=== PATIENT | female | born 1935 | race Caucasian/White ===

== ENCOUNTER 2019-08-01 08:05 | Inpatient (IN) ==
--- NOTE | 2019-07-20 15:55 | PAT Medication Instructions ---
Medication Instructions Date of Service July 20, 2019 Home Medications doxepin 25 mg PO HS levothyroxine 75 mcg PO QAM losartan 50 mg PO QAM omeprazole 40 mg PO QAM oxybutynin chloride 5 mg PO HS paroxetine HCl 40 mg PO QAM quetiapine [Seroquel] 100 mg PO HS simvastatin 20 mg PO HS melatonin 5 mg PO HS DO NOT take the morning of surgery losartan 50 mg PO QAM Take morning of surgery With a small sip of water, OTHERWISE NOTHING TO EAT OR DRINK AFTER MIDNIGHT: levothyroxine 75 mcg PO QAM omeprazole 40 mg PO QAM paroxetine HCl 40 mg PO QAM Take evening before surgery doxepin 25 mg PO HS oxybutynin chloride 5 mg PO HS quetiapine [Seroquel] 100 mg PO HS simvastatin 20 mg PO HS melatonin 5 mg PO HS Other Notes If you have any questions please call us at [phone] or [phone] or [phone] or [phone]
--- NOTE | 2019-07-21 08:35 | Anesthesiology Consultation ---
Date of Service July 21, 2019 Assessment & Plan (1) Encounter for pre-operative examination: - Awaiting review preop testing (labs, EKG, CXR). Chart Review Chart Review: Patient seen in Pre Admission Testing Teaching & Discussion Pre-Anesthesia Teaching/Discussion Notes: Instructed NPO after midnight before surgery,except medications with 15 cc of water. Medication instructions provided according to the PAT guidelines. History Surgery Operation Date: 08/01/19 10:25 Proposed Procedures p L1 Kyphoplasty - Ed Mcgovern DO Height/Weight Height: 5 ft 3 in Weight: 76.5 kg Allergies Allergy/AdvReac Type Severity Reaction Status Date / Time chlorpromazine AdvReac Confusion Verified 07/19/19 08:32 [From Thorazine] morphine AdvReac Confusion Verified 07/19/19 08:32 Medications Home Medications Medication Instructions Recorded Confirmed Last Taken doxepin 25 mg PO HS 08/22/18 07/19/19 10/10/18 levothyroxine 75 mcg PO QAM 08/22/18 07/19/19 10/11/18 07:00 losartan 50 mg PO QAM 08/22/18 07/19/19 10/11/18 07:00 omeprazole 40 mg PO QAM 08/22/18 07/19/19 10/11/18 07:00 oxybutynin chloride 5 mg PO HS 08/22/18 07/19/19 10/10/18 paroxetine HCl 40 mg PO QAM 08/22/18 07/19/19 10/11/18 07:00 quetiapine [Seroquel] 100 mg PO HS 08/22/18 07/19/19 10/10/18 simvastatin 20 mg PO HS 08/22/18 07/19/19 10/10/18 melatonin 5 mg PO HS 07/19/19 07/19/19 Unknown Past Medical History Medical History Anxiety Fatty liver GERD (gastroesophageal reflux disease) controlled Hearing deficit no hearing aids Hyperlipidemia Hypertension Hypothyroidism Obesity Osteoarthritis Overactive bladder Exercise / Class Metabolic Activity III < 4 Walking/Shop/Light housework Past Family History Family History Brother Family hx of colon cancer Family history of esophageal cancer Mother Family hx of colon cancer Daughter Family history of diabetes mellitus Past Surgical History Surgical History History of bilateral tubal ligation History of breast biopsy History of cataract surgery b/l History of cholecystectomy History of colonoscopy polypectomy History of salpingo-oophorectomy History of shoulder surgery left History of total knee replacement left Past Anesthesia History No Hx of Anesthesia Complications and No Family Hx of Anesthesia Complications History of PONV No Hx of PONV and No Hx of Motion Sickness Social History Smoking Status: Never smoker Do You Dip or Chew Tobacco: No Hx Alcohol Use: No Hx Substance Use: No substance use type: does not use Review of Systems Reflux controlled. Patient denies chest pain, shortness of breath, cough, wheezi ng, palpitations. Physical Exam Vital Signs VITALS BP 132/75 P 94 TEMP 98.2 SP02 93%RA RESP 18 PHYSICAL Full neck and c-spine range of motion. Full TMJ range of motion. TMD 3 finger breaths Mallampati Score 3 Dentition: full plate upper/lower; edentulous Lungs: clear throughout to auscultation Cardiac: regular rate and rhythm, no murmurs noted Spine: normal Carotid arteries: negative bruit Extremities: no edema
[2019-07-21 09:42] LABS: Basophils # (auto) 0.03 K/uL (0-0.2); Basophils % (auto) 0.4 %; Eosinophils % (auto) 1.3 %; Hematocrit (blood only) 36.5 % (37-47); Hemoglobin 12.3 g/dL (12.0-16.0); Immature Granulocytes # (auto) 0.01 K/uL (0.00-0.02); Immature Granulocytes % (auto) 0.1 %; Lymphocytes # (auto) 1.87 K/uL (1.2-3.4); Lymphocytes % (auto) 23.4 %; Mean Corpuscular Hemoglobin 30.3 pg (25-34); Mean Corpuscular Hgb Conc 33.7 g/dL (32-36); Mean Corpuscular Volume 89.9 fL (80-100); Mean Platelet Volume 9.1 fL (7.4-10.4); Monocytes # (auto) 0.76 K/uL (0.11-0.59); Monocytes % (auto) 9.5 %; Neutrophils # (auto) 5.23 K/uL (1.4-6.5); Neutrophils % (auto) 65.3 %; Platelet Count 223 K/uL (130-400); RDW Coefficient of Variation 15.4 % (11.5-14.5); RDW Standard Deviation 51.2 fL (36.4-46.3); Red Blood Count 4.06 M/uL (4.2-5.4)
[2019-07-21 09:52] LABS: BUN Creatinine Ratio 19.8 (10-20); Calcium 8.8 mg/dl (8.5-10.1); Creatinine Clr Calc Pharmacy 54.2 ml/min; Est GFR (African American) 82.8; Est GFR (Non-African American) 71.4
[2019-07-21 09:54] LABS: Partial Thromboplastin Time 27.1 Seconds (21.0-31.0); Prothrombin Time 10.2 Seconds (9.0-12.0)
[~2019-08-01 08:05] MED LIST: ACETAMINOPHEN 500 MG TAB PO SCH; CEFAZOLIN 2000MG 2,000 MG/15 ML SYR IV SCH; CeleBREX 200 MG CAP PO SCH; GABAPENTIN 300 MG CAP PO SCH; LR 15ML/HR IV SCH
[2019-08-01] MEDS ORDERED: fentaNYL citrate 100 MCG/2 ML VIAL ONE ×2 (09:11→10:35)
--- NOTE | 2019-08-01 09:28 | History & Physical Bridge Note ---
Date of Service August 01, 2019 History & Physical Bridge Note I have examined the patient, reviewed the History & Physical and in the interval since the performance of the History & Physical I have noted the following changes of clinical significance: no changes noted
--- NOTE | 2019-08-01 09:29 | History & Physical Report ---
Date of Service August 01, 2019 Assessment & Plan (1) Lumbar compression fracture: L1 kyphoplasty Present on Admission?: Yes History of Present Illness Chief Complaint: Back pain Primary Care Provider: Bernice Myers DO This is an 83-year-old female who presents with worsening back pain status post L1 compression fracture. She is subsequently here for surgical intervention. Allergies Allergy/AdvReac Type Severity Reaction Status Date / Time chlorpromazine AdvReac Intermediate Confusion Verified 08/01/19 08:36 [From Thorazine] morphine AdvReac Intermediate Confusion Verified 08/01/19 08:36 Home Medications Home Medications Medication Instructions Recorded Confirmed Type doxepin 25 mg PO HS 08/22/18 08/01/19 History levothyroxine 75 mcg PO QAM 08/22/18 08/01/19 History omeprazole 40 mg PO QAM 08/22/18 08/01/19 History oxybutynin chloride 5 mg PO HS 08/22/18 08/01/19 History paroxetine HCl 40 mg PO QAM 08/22/18 08/01/19 History quetiapine [Seroquel] 100 mg PO HS 08/22/18 08/01/19 History simvastatin 20 mg PO HS 08/22/18 08/01/19 History melatonin 5 mg PO HS 07/19/19 08/01/19 History apixaban [Eliquis] 5 mg PO BID #60 tab 07/21/19 08/01/19 Rx metoprolol tartrate 12.5 mg PO BID #14 tab 07/21/19 08/01/19 Rx Past Med/Surg History Family History Brother Family hx of colon cancer Family history of esophageal cancer Mother Family hx of colon cancer Daughter Family history of diabetes mellitus Social History Preferred Language: Mohawk Communication Ability: Effective Financial Systems Manager Required: No Beliefs That Will Affect Care: None Current Living Situation: Family Current Living Situation Comment: currently lives w/ son Other Information That Helps Us Care for You: No Feels Safe at Home: Yes Safety Concerns: Feels Safe At This Time Smoking Status: Never smoker Do You Dip or Chew Tobacco: No ; Second Hand Exposure: No ; Tobacco Cessation Education Requested by Patient: No Hx Alcohol Use: No Hx Substance Use: No Physical Exam Physical Exam: Patient is alert and oriented neurologically intact. Results & Data Vital Signs (Past 12 Hours) Vital Signs Temp Pulse Resp BP Pulse Ox 08/01/19 08:45 36.5 C 99 H 20 159/81 H 96
[2019-08-01] MEDS ORDERED: GLYCOPYRROLATE 0.2 MG/ML VIAL ONE (09:41)
[2019-08-01] MEDS ORDERED: ROCURONIUM BROMIDE 10 MG/ML 5 ML VIAL ONE (09:41)
[2019-08-01] MEDS ORDERED: DEXAMETHASONE SOD INJ 4 MG/ML VIAL ONE (09:41)
[2019-08-01] MEDS ORDERED: LIDOCAINE HCL 2% 2 ML VIAL/AMP(20MG/ML) INFIL ONE (09:41)
[2019-08-01] MEDS ORDERED: PROPOFOL IV EMULSION 10 MG/ML 20 ML VIAL IV ONE (09:41)
[2019-08-01] MEDS ORDERED: ONDANSETRON INJ 2 MG/ML 2 ML VIAL ONE (09:41)
[2019-08-01] MEDS ORDERED: NEOSTIGMINE METHYLSULFATE 1 MG/ML 10ML VIAL ONE (09:41)
[2019-08-01] MEDS ORDERED: HYDROmorphone INJ 2 MG/ML SYR/VIAL ONE (09:41)
[2019-08-01] MEDS ORDERED: BUPIVACAINE/EPINEPHRINE 0.5% MPF 1:200,000 30 ML VIAL ONE (09:43)
[2019-08-01] MEDS ORDERED: CONRAY 60% 50 ML VIAL ONE (09:43)
[2019-08-01] MEDS ORDERED: fentaNYL citrate 100 MCG/2 ML VIAL IV PRN (09:51)
[2019-08-01] MEDS ORDERED: LABETALOL HCL IV 5 MG/ML 20ML IV PRN (09:51)
[2019-08-01] MEDS ORDERED: ONDANSETRON INJ 2 MG/ML 2 ML VIAL IV PRN ×2 (09:51→17:33)
[2019-08-01] MEDS ORDERED: ATROPINE SULFATE 0.1 MG/ML 10ML SYR IV PRN (09:51)
[2019-08-01] MEDS ORDERED: PHENYLEPHRINE 100MCG/ML 5ML SYR ONE (10:45)
[2019-08-01] MEDS ORDERED: LARYING-O-JET KIT (LTA) ONE (10:45)
[2019-08-01] MEDS ORDERED: KETOROLAC 30 MG/ML VIAL ONE (10:45)
[2019-08-01] MEDS ORDERED: HYDROmorphone INJ 0.5 MG/0.5 ML SYR IV PRN ×2 (10:48)
[2019-08-01] MEDS ORDERED: ACETAMINOPHEN 500 MG TAB PO PRN (10:48)
[2019-08-01] MEDS ORDERED: HYDROCODONE/ACETAMOPHEN 5/325MG TAB PO PRN ×2 (10:48)
--- NOTE | 2019-08-01 10:48 | Operative Report ---
Post Operative Report Pre & Post Diagnosis Operation Date: 08/01/19 10:05 Pre-Op Diagnosis: Wedge Compression Fracture of First Lumbar Vertebrae Post-Op Diagnosis: Wedge Compression Fracture of First Lumbar Vertebrae I identified the patient and participated in the time-out.: Yes Procedure Operation Date: 08/01/19 10:05 Actual Procedures p L1 Kyphoplasty(Not Applicable) - Ed Mcgovern DO Surgeon Ed Mcgovren, Rhit None Estimated Blood Loss 10 Findings Consistent with Post-Op Diagnosis Specimens Biopsy of L1 vertebral body Indications This is a 83-year-old female that presents with worsening pain status post L1 compression fracture. She is unable to undergo her activities of daily living and subsequently elected to undergo the above-mentioned procedure. Description of Procedure Patient was met with identified and informed consent obtained. Patient was then taken to the operative suite underwent intubation placed in the prone position the [place] table chest padded bolsters. All bony prominences well-padded eyes inspected to ensure no external pressure placed upon the peer at this point the thoracolumbar spine was prepped and draped in the normal sterile fashion. With the assistance of fluoroscopy in AP and lateral planes identified the L1 vertebral body and 2 small incisions were placed just lateral to the pedicle. Kyphon working cannulas were then placed by way of a transpedicular approach into the vertebral body of L1. 2 core biopsies were then obtained. I then inserted 220 mm Kyphon balloons within the vertebral body. They were sequentially inflated under direct visualization of fluoroscopy. They were subsequently removed in approximately 6 cc of Kyphon cement injected under fluoroscopic visualization. Demonstrated an excellent interdigitation and fill of the vertebral body. The working apparatus was then removed the small incisions closed with subcutaneous Monocryl sterile dressing placed. Patient awakened taken to PACU stable condition. I attest to the content of the Intraoperative Record and any orders documented therein. Any exceptions are noted below.
--- NOTE | 2019-08-01 11:09 | Fluoroscopy Report ---
FL lumbar spine 2-3V HISTORY: 83 years-old Female L1 KYPHOPLASTY L1 compression deformity with kyphoplasty COMPARISON: None available TECHNIQUE: 3 spot fluoroscopic images of the lumbar spine were obtained utilizing 149.2 seconds fluor oscopy time FINDINGS: Demineralized appearance the bones. Burst fracture with kyphoplasty changes at what appears to be the L1 vertebral body. Kyphoplasty material appears to be located within the vertebral body without gerardo cent extravasation. Mild associated retropulsion of the fracture fragments. Mild multilevel disc spac e narrowing and spondylitic spurring. IMPRESSION: Fluoroscopic assistance as above. Please see procedural report for further details. The above report was generated using voice recognition software. It may contain grammatical, syntax o r spelling errors. Electronically signed by: Norbert Ward M.D. 08/01/2019 11:07 AM
[2019-08-01] MEDS ORDERED: LABETALOL HCL IV 5 MG/ML 20ML IV ONE (12:10)
[2019-08-01] MEDS ORDERED: ESMOLOL HCL INJ 10 MG/ML 10ML VIAL IV ONE (12:10)
--- NOTE | 2019-08-01 12:23 | Anesthesiology Progress Note ---
Date of Service August 01, 2019 Anesthesia Post Procedure Vital Signs Vital Signs: Temp Pulse Pulse Resp BP Pulse Ox 08/01/19 12:05 36.5 C 87 17 105/86 95 08/01/19 11:55 36.5 C 80 19 117/85 95 08/01/19 11:45 36.5 C 82 18 134/96 94 08/01/19 11:36 36.5 C 81 21 133/84 96 08/01/19 11:25 36.3 C L 87 10 L 135/88 98 08/01/19 11:15 36.3 C L 79 15 140/109 H 96 08/01/19 11:07 36.3 C L 99 H 14 149/111 H 99 08/01/19 08:45 36.5 C 99 H 20 159/81 H 96 Pain Intensity Lower Back: Pain Intensity: 5 Neck: Pain Intensity: 10 Transfer of Care Handoff Completed per policy Notes Mental Status: alert / awake / arousable Patient Amnestic to Procedure: Yes Nausea / Vomiting: adequately controlled Pain: adequately controlled Airway Patency, RR, SpO2: stable & adequate BP & HR: stable & adequate Hydration State: stable & adequate Anesthetic Complications: no major complications apparent
--- NOTE | 2019-08-01 16:45 | Anesthesiology Progress Note ---
Date of Service August 01, 2019 Anesthesia Post Procedure Vital Signs Vital Signs: Temp Pulse Pulse Resp BP Pulse Ox 08/01/19 16:00 72 13 144/83 H 99 08/01/19 15:50 68 21 137/69 99 08/01/19 15:40 72 12 131/85 93 08/01/19 15:30 74 20 132/76 93 08/01/19 15:20 36.0 C L 74 16 130/98 97 08/01/19 15:10 75 13 125/76 95 08/01/19 15:00 85 13 110/88 95 08/01/19 14:30 36.4 C L 83 23 154/87 H 94 08/01/19 14:15 36.4 C L 89 19 141/88 H 93 08/01/19 14:00 36.4 C L 79 12 125/75 93 08/01/19 13:45 36.4 C L 97 H 11 L 128/104 H 95 08/01/19 13:30 77 12 123/93 94 08/01/19 13:20 79 14 130/80 93 08/01/19 13:10 84 14 135/80 96 08/01/19 13:00 82 13 121/84 96 08/01/19 12:50 36.5 C 79 14 132/84 96 08/01/19 12:35 36.5 C 84 24 130/80 95 08/01/19 12:20 36.5 C 88 17 127/89 95 08/01/19 12:05 36.5 C 87 17 105/86 95 08/01/19 11:55 36.5 C 80 19 117/85 95 08/01/19 11:45 36.5 C 82 18 134/96 94 08/01/19 11:36 36.5 C 81 21 133/84 96 08/01/19 11:25 36.3 C L 87 10 L 135/88 98 08/01/19 11:15 36.3 C L 79 15 140/109 H 96 08/01/19 11:07 36.3 C L 99 H 14 149/111 H 99 08/01/19 08:45 36.5 C 99 H 20 159/81 H 96 Pain Intensity Lower Back: Pain Intensity: 0 Neck: Pain Intensity: 0 Transfer of Care Handoff Completed per policy Notes Mental Status: alert / awake / arousable Patient Amnestic to Procedure: Yes Nausea / Vomiting: adequately controlled Pain: adequately controlled Airway Patency, RR, SpO2: see Notes below BP & HR: stable & adequate Hydration State: stable & adequate Anesthetic Complications: no major complications apparent and Pt Satisfied with anesthetic care Notes: The patient underwent surgery earlier today. Dr. Reed signed the patient over to me at 1500. She has been sleepy in the PACU for the past several hours likely due to a combination of residual narcotic, advanced age, and undiagnosed sleep apnea. She would occasionally arouse but then would obstruct her breathing and her SpO2 would go down to the low 90s. Bipap was placed on the patient and she has responded very well. She is awake and talking . Since the patient is requiring Bipap to remain awake she will be observed overnight in telemetry. Dr. Wall will follow the patient on the floor. Dr. Mcgovern is aware that the patient will be staying in the hospital.
--- NOTE | 2019-08-01 17:01 | XRay Report ---
XR chest 1V portable HISTORY: hypoxia /resp failure COMPARISON: None. FINDINGS: No pneumothorax. The heart is mildly enlarged. There is diffuse interstitial vascular thick ening. This favors mild interstitial pulmonary edema. Questionable trace pleural effusions. No focal lung consolidations to suggest pneumonia. IMPRESSION: Mild interstitial pulmonary edema and trace bilateral pleural effusions. Electronically signed by: Benitez Jimenez M.D. 08/01/2019 4:59 PM
--- NOTE | 2019-08-01 17:12 | Hospitalist Consultation ---
Date of Consultation August 01, 2019 Assessment & Plan (1) Unresponsiveness: Patient patient was difficult to arouse postoperatively Possible combination of narcotic pain medications, obstructive sleep apnea, leading to CO2 retention Symptom resolved after BiPAP Patient is awake and alert answers questions appropriately Continue on BiPAP, plan to wean off BiPAP to nasal cannula Monitoring telemetry Avoid narcotics, sedatives PAROXYSMAL A. FIB Recently diagnosed in the ER visit 07/21/2019 at [facility] for palpitation Patient been started with Lopressor 12.5 mg twice daily and anticoagulated on Eliquis 5 mg twice daily( [id number] score 4: Age, gender, hypertension) Seen by cardiology at [facility] Dr. Crocker on 07/27/2019 Commenced to continue beta-devan, had no bleeding issues with Eliquis Echocardiogram on 03/2018 showed normal LV ejection fraction Patient had a 24-hour Holter study on 03/2018: 30 runs of SVT likely PAT Patient found to be stable to proceed for elective lumbar kyphoplasty [facility] on 08/01/2019 Eliquis was kept on hold appropriately preop Patient continued with beta-devan Postoperatively tomorrow morning patient remains in normal sinus with rate controlled Monitor on telemetry Chest x-ray shows mild pulmonary vascular congestion with trace bilateral pleural effusion Ordered for echo in a.m. HYPERLIPIDEMIA Continue statin LUMBAR DECOMPRESSION FRACTURE Patient sustained a fall on May, L1 compression fracture which has been limiting her daily activities Underwent kyphoplasty by Dr. Mcgovern today postoperative day 0 Postop complication noted to be unresponsiveness hypoxia-management as outlined above HYPOTHYROIDISM Continue levothyroxine CODE STATUS: Full code DVT prophylaxis: SCD and teds Pharmacological anticoagulation avoided secondary to recent spinal surgery DISPOSITION Observe in telemetry overnight Possible discharge tomorrow by primary service if patient's respiratory status is back to normal History of Present Illness Reason for Consultation: Unresponsive post lumbar surgery Requesting Physician: Ed Mcgovern DO Attending Physician: Ed Mcgovern DO History of Present Illness This is a 83-year-old female with past medical history of paroxysmal A. fib, hypertension, hyperlipidemia, hypothyroidism Underwent kyphoplasty by Dr. Mcgovern for severe compression fracture of L1 Intraoperatively patient received 200 mcg of IV fentanyl, IV Dilaudid Postprocedure recovery patient was difficult to arouse, She was given Narcan with no improvement Briefly responsive after placing nasal trumpet, 2 L oxygen supplement via nasal cannula Later became sedated again with SPO2 dropping below 90s BiPAP was placed, Patient was seen in PACU, was on BiPAP, More arousable, After 10 minutes on BiPAP, open eyes, able to answer questions appropriately, denies of any chest pain, shortness of breath Denies of any history of COPD, sleep apnea or any lung issues Patient will be observed in telemetry overnight for possible CO2 retention secondary to narcotic sedation, Ordered for stat portable chest x-ray: Shows mild pulmonary vascular congestion, no infiltrate Stat ABG ordered: Results still pending Patient will be continued with BiPAP, plan to wean off BiPAP and transition to nasal cannula, ABG shows no evidence of CO2 retention Avoid on narcotics for pain meds, sedated Scheduled dose of IV Tylenol Plan of care discussed with primary attending Dr. Mcgovern Allergies Allergy/AdvReac Type Severity Reaction Status Date / Time chlorpromazine AdvReac Intermediate Confusion Verified 08/01/19 08:36 [From Thorazine] morphine AdvReac Intermediate Confusion Verified 08/01/19 08:36 Home Medications Home Medications Medication Instructions Recorded Confirmed Type doxepin 25 mg PO HS 08/22/18 08/01/19 History levothyroxine 75 mcg PO QAM 08/22/18 08/01/19 History omeprazole 40 mg PO QAM 08/22/18 08/01/19 History oxybutynin chloride 5 mg PO HS 08/22/18 08/01/19 History paroxetine HCl 40 mg PO QAM 08/22/18 08/01/19 History quetiapine [Seroquel] 100 mg PO HS 08/22/18 08/01/19 History simvastatin 20 mg PO HS 08/22/18 08/01/19 History melatonin 5 mg PO HS 07/19/19 08/01/19 History apixaban [Eliquis] 5 mg PO BID #60 tab 07/21/19 08/01/19 Rx metoprolol tartrate 12.5 mg PO BID #14 tab 07/21/19 08/01/19 Rx hydrocodone-acetaminophen See Rx Instructions .ROUTE 08/01/19 Rx .COMPLEX PRN #30 tab Patient History Family History Brother Family hx of colon cancer Family history of esophageal cancer Mother Family hx of colon cancer Daughter Family history of diabetes mellitus Social History Preferred Language: Telugu Communication Ability: Effective Simulation Tech Required: No Beliefs That Will Affect Care: None Current Living Situation: Family Current Living Situation Comment: lives with son Other Information That Helps Us Care for You: No Feels Safe at Home: Yes Safety Concerns: Feels Safe At This Time Smoking Status: Never smoker Do You Dip or Chew Tobacco: No ; Second Hand Exposure: No ; Tobacco Cessation Education Requested by Patient: No Hx Alcohol Use: No Hx Substance Use: No Physical Exam Constitutional: no acute distress Eyes: + anicteric sclerae ENMT: On BiPAP, patient is awake, able to answer questions Neck: trachea midline, no thyromegaly Respiratory: normal respiratory effort; no respiratory distress and no cough Auscultation: no crackles, no rales, no rhonchi and no wheezes Cardiovascular: RRR, no murmur, no edema Musculoskeletal: no cyanosis or clubbing, extremities motor strength 5/5 Skin: no rashes, warm and dry Neurologic: PERRL, EOMI, accommodation nl, no face palsy, no dysarthria Psychiatric: Orientation: alert, oriented to person and oriented to place Results & Data Vital Signs (Past 12 Hours) Vital Signs Temp Pulse Pulse Pulse Resp BP Pulse Ox 08/01/19 16:40 72 13 125/71 99 08/01/19 16:30 70 12 120/69 99 08/01/19 16:20 72 77 13 125/68 99 08/01/19 16:10 73 24 127/82 98 08/01/19 16:00 72 13 144/83 H 99 08/01/19 15:50 68 21 137/69 99 08/01/19 15:40 72 12 131/85 93 08/01/19 15:30 74 20 132/76 93 08/01/19 15:20 36.0 C L 74 16 130/98 97 08/01/19 15:10 75 13 125/76 95 08/01/19 15:00 85 13 110/88 95 08/01/19 14:30 36.4 C L 83 23 154/87 H 94 08/01/19 14:15 36.4 C L 89 19 141/88 H 93 08/01/19 14:00 36.4 C L 79 12 125/75 93 08/01/19 13:45 36.4 C L 97 H 11 L 128/104 H 95 08/01/19 13:30 77 12 123/93 94 08/01/19 13:20 79 14 130/80 93 08/01/19 13:10 84 14 135/80 96 08/01/19 13:00 82 13 121/84 96 08/01/19 12:50 36.5 C 79 14 132/84 96 08/01/19 12:35 36.5 C 84 24 130/80 95 08/01/19 12:20 36.5 C 88 17 127/89 95 08/01/19 12:05 36.5 C 87 17 105/86 95 08/01/19 11:55 36.5 C 80 19 117/85 95 08/01/19 11:45 36.5 C 82 18 134/96 94 08/01/19 11:36 36.5 C 81 21 133/84 96 08/01/19 11:25 36.3 C L 87 10 L 135/88 98 08/01/19 11:15 36.3 C L 79 15 140/109 H 96 08/01/19 11:07 36.3 C L 99 H 14 149/111 H 99 08/01/19 08:45 36.5 C 99 H 20 159/81 H 96
[2019-08-01] MEDS ORDERED: MAGNESIUM HYDROXIDE SUSP 30 ML UDC PO PRN (17:33)
[2019-08-01] MEDS ORDERED: POLYETHYLENE (MIRALAX) 17 GM PACK PO PRN (17:33)
[2019-08-01] MEDS ORDERED: ALUMINUM/MAGNESIUM SUSP 30 ML UDC PO PRN (17:33)
[2019-08-01 18:01] LABS: Hematocrit (blood only) 30.5 % (37-47); Hemoglobin 10.1 g/dL (12.0-16.0); Mean Corpuscular Hemoglobin 29.9 pg (25-34); Mean Corpuscular Hgb Conc 33.1 g/dL (32-36); Mean Corpuscular Volume 90.2 fL (80-100); Mean Platelet Volume 9.1 fL (7.4-10.4); Platelet Count 165 K/uL (130-400); RDW Coefficient of Variation 15.3 % (11.5-14.5); RDW Standard Deviation 50.9 fL (36.4-46.3); Red Blood Count 3.38 M/uL (4.2-5.4); White Blood Count 8.31 K/uL (4.8-10.8)
[2019-08-01 18:05] LABS: Base Excess ABG 1.6 mEq/L (-9-1.8); HCO3 ABG 28 mmol/L (19-24); Oxygen Saturation ABG 97.7 % (90-95); PCO2 ABG 52 mmHg (35-46); PO2 ABG 108 mm/Hg (80-95); pH ABG 7.35 (7.35-7.45)
[2019-08-01 18:06] LABS: Allen Test POS (Pos)
[2019-08-01] MEDS: ACETAMINOPHEN 1,000 MG/100 ML VIAL IV SCH (18:06)
[2019-08-01 18:14] LABS: BUN Creatinine Ratio 17.3 (10-20); Calcium 8.4 mg/dl (8.5-10.1); Creatinine Clr Calc Pharmacy 67.5 ml/min; Est GFR (African American) 95.6; Est GFR (Non-African American) 82.5; Potassium 3.9 mmol/L (3.5-5.1)
[2019-08-01] MEDS ORDERED: OXYBUTYNIN CHLORIDE 5 MG TAB PO SCH (21:00)
[2019-08-01] MEDS ORDERED: SIMVASTATIN 20 MG TAB PO SCH (21:00)
[2019-08-01] MEDS: METOPROLOL TARTRATE 25 MG TAB PO SCH (21:06)
[2019-08-02] MEDS: ACETAMINOPHEN 1,000 MG/100 ML VIAL IV SCH (01:50)
[2019-08-02 06:12] LABS: Hematocrit (blood only) 30.7 % (37-47); Hemoglobin 10.3 g/dL (12.0-16.0)
[2019-08-02] MEDS ORDERED: LEVOTHYROXINE SODIUM 75 MCG TABLET PO SCH (06:30)
[2019-08-02] MEDS: METOPROLOL TARTRATE 25 MG TAB PO SCH (07:32)
--- NOTE | 2019-08-02 08:09 | Hospitalist Progress Note ---
Date of Service August 02, 2019 Assessment & Plan (1) Unresponsiveness: Pt had kyphoplasty on 08/01/19 for L1 compression fracture. Patient patient was difficult to arouse postoperatively Possible combination of narcotic pain medications, obstructive sleep apnea, leading to CO2 retention Symptom resolved after BiPAP Bipap was continued throughout the night This am pt on room air with O2 sats at 98%, alert and oriented Narcotic pain meds and sedatives were on hold throughout the night -Symptoms have resolved -Can resume pain medications as needed, would recommend low dose (2) S/P kyphoplasty: History L1 compression fracture Post op day# 1 S/P L1 Kyphoplasty by Dr Mcgovern Postop complication noted to be unresponsiveness, hypoxia-management as outlined above -wound management per ortho -PT/OT as appropriate -DVT prophylaxis per ortho -incentive spirometry -Hb.3 from 10.1 yesterday, monitor H&H for acute blood loss anemia (3) Atrial fibrillation: Recently diagnosed a-fib on 07/21/[address] Crocker - [facility]. Most recently seen on 07/27/19. Was determined to be stable to proceed for elective lumbar kyphoplasty on 08/01/2019 Echo on 03/2018 showed normal LV ejection fraction. Patient had a 24-hour Holter study on 03/2018: 30 runs of SVT likely PAT -Rate controlled -Eliquis was kept on hold appropriately preop -Continue metoprolol -Resume Eliquis when ok per ortho surgery -Pending echo (4) HTN (hypertension): BP this am 175/95. Prior to her metoprolol dose -Monitor BP, suspect will decrease after am meds (5) HLD (hyperlipidemia): -Continue statin (6) Hypothyroidism: -Continue levothyroxine DVT PROPHYLAXIS: SCD and teds per ortho DISPOSITION Pt's respiratory and mental status back to normal Can be discharged per ortho after her echo is completed Follow up with PCP on 08/09/19 at 10:45am with Dr Myers Supervising Physician Co-Signing Physician Notes ATTENDING ADDENDUM : pt seen and examined , care co-co ordinated with Kaya Kunz PA-C Renee is sitting up on chair awake and alert , comfortable no complain of cough or SOB not requiring 02 spo2 98% in RA pt has been doing well , back to baseline since this AM tolerating diet walked independently to bathroom PHYSICAL EXAM : GEN: aao X3, NO sign of distress very pleasant elderly female HEENT ; sclera non icteric , PERRLA /EOMI LUNGS : clear to ausculate bilat , no wheeze or rales CARDIO: Regular S1/S2 EXT : s/p back surgery , no pain or discomfort NEURO: No focal neurological deficit ASSESSMENT AND PLAN : S/P BACK SURGERY ; underwent kyphoplasty for L1 Compression POD # 1 post op course was complicated -excessive sedation , Co2 retention symptom resolved after BiPAP overnight awake and alert pt is back to baseline ambulating independently had PT/OT eval -pt walked around the hallway with walker with requiring any assistance stable to be discharged home today please refer to further documentation by Kaya Kunz PA-C for discussion of other chronic issues plan of care D/w with Primary service Dr Shaniqua Wall Subjective Pt seen and examined. Sitting up in bedside chair eating breakfast. Currently on room air and saturating and mentating well. Pt reports is feeling good. Denies any back pain, leg pain or other pain. No nausea or vomiting. Urinating without difficulty. Denies fever/chills, N/V/D, WADE, dizziness, CP, SOB, palpitations, cough, choking, abdominal pain, paresthesias, weakness, extremity weakness, extremity edema, rashes, urinary symptoms. Review of Systems Review of Systems: All systems reviewed & are unremarkable except as noted in HPI & below Physical Exam Physical Exam: General: no distress, WDWN Head: normocephalic, atraumatic Eyes: conjunctiva non-injected, anicteric ENT: normal inspection external ears, nose, mucous membranes moist Neck: supple, trachea midline Lungs: clear, no respiratory distress, no wheezing/rhonchi/rales CV: irregularly irregular, rate 88, no pretibial edema Abd: normal BS, soft, non-tender Ext: no cyanosis, no calf tenderness; flexion and extension of knees intact while examined in bedside chair; distal pulses intact, sensation to light touch intact Neuro: A&O x 3, no focal deficits noted, normal affect Skin: warm, dry Results & Data Vital Signs (Past 12 Hours) Vital Signs Temp Pulse Pulse Pulse Resp BP Pulse Ox 08/02/19 07:02 36.7 C 94 H 18 175/95 H 98 08/02/19 03:44 36.4 C L 84 19 153/89 H 100 08/02/19 01:44 68 20 97 08/02/19 00:00 75 08/01/19 23:03 36.9 C 65 16 132/75 97 08/01/19 21:56 74 17 100 08/01/19 20:08 83 14 94 Laboratory Results Short CBC 08/01/19 08/02/19 Range/Units 17:46 05:41 WBC 8.31 (4.8-10.8) K/uL Hgb 10.1 L 10.3 L (12.0-16.0) g/dL Hct 30.5 L 30.7 L (37-47) % Plt Count 165 (130-400) K/uL BMP 08/01/19 17:46 Sodium 137 Potassium 3.9 Chloride 103 Carbon Dioxide 29 BUN 11 Creatinine 0.64 Glucose 148 H Calcium 8.4 L
[2019-08-02] MEDS ORDERED: PANTOprazole 40 MG TAB PO SCH (09:00)
[2019-08-02] MEDS ORDERED: PARoxetine HCl 20 MG TAB PO SCH (09:00)
[2019-08-02] MEDS ORDERED: ACETAMINOPHEN 500 MG TAB PO SCH (14:00)
--- NOTE | 2019-08-02 14:12 | Discharge Summary ---
Date of Service August 02, 2019 Admission HPI Per Admitting Provider This is an 83-year-old female who presents with worsening back pain status post L1 compression fracture. She is subsequently here for surgical intervention. Principal Diagnosis L1 compression fracture Discharge Data Allergies Allergy/AdvReac Type Severity Reaction Status Date / Time chlorpromazine AdvReac Intermediate Confusion Verified 08/01/19 08:36 [From Thorazine] morphine AdvReac Intermediate Confusion Verified 08/01/19 08:36 Consultations 08/01/19 16:11 Consult Hospitalist Stat Procedures Performed Operation Date: 08/01/19 10:05 Actual Procedures p L1 Kyphoplasty(Not Applicable) - Ed Mcgovern DO Ordered Studies 08/01/19 10:05 FL fluoroscopy <1hr Routine FL lumbar spine 2-3V Routine Hospital Course (1) Lumbar compression fracture: Patient underwent L1 kyphoplasty tolerated as well but struggled in the recovery area with evidence of sleep apnea. Subsequently we elected to keep her overnight on telemetry. Postop day 1 she was quite stable. She was neurologically intact dressings in place pain well controlled. Subsequent discharge home. Discharge orders instructions from the chart for further review. Total Time Total Time Spent Total Time Spent (In Minutes): 20 minutes Discharge Plan Discharge Items Patient Disposition: Home - Home Health Services Reason For Visit: Wedge Compression Fracture of First Lumbar Vertebr Discharge Diagnosis: L1 compression fracture Activity: As commented below Lifting: No more than 10 pounds Lifting Comment: NOT MORE THAN 10 POUNDS FOR 2 WEEKS Bathing: May shower/bathe in 3 days Non-emergency contact: Primary Care Provider Call non-emergency contact if: you have any medication questions Follow-up/Referrals: Ed Mcgovern DO [Surgeon] - (in 2 weeks ) Bernice Myers DO [Primary Care Provider] - 08/09/19 10:45 am Diet: Heart Healthy Addtl Attending Provider Instructions: Follow up with family physician Dr Myers on 08/09/19 at 10:45am FOLLOW UP WITH DR MCGOVERN IN 2 WEEKS , appointment scheduled already do not lift more than 10 lb for next 2 weeks , till seen by Dr Mcgovern YOU CAN START TAKING ELIQUIS TOMORRROW Pending Studies at Discharge: Yes Stand-Alone Forms: My [facility] Need Fixed, Smoking Cessation Medications and DC Order Prescriptions: New hydrocodone-acetaminophen 5-325 mg tablet See Rx Instructions .ROUTE .COMPLEX PRN (Reason: pain) Qty: 30 RF: 0 Continued doxepin 25 mg Capsule 25 mg PO HS RF: 0 omeprazole 40 mg Capsule,Delayed Release(Dr/Ec) 40 mg PO QAM RF: 0 quetiapine [Seroquel] 100 mg Tablet 100 mg PO HS RF: 0 levothyroxine 75 mcg Tablet 75 mcg PO QAM RF: 0 simvastatin 20 mg Tablet 20 mg PO HS RF: 0 paroxetine HCl 40 mg Tablet 40 mg PO QAM RF: 0 oxybutynin chloride 5 mg Tablet 5 mg PO HS RF: 0 melatonin 5 mg Tablet,Chewable 5 mg PO HS RF: 0 Eliquis 5 mg tablet 5 mg PO BID Qty: 60 RF: 0 metoprolol tartrate 25 mg tablet 12.5 mg PO BID Qty: 14 RF: 0 Discharge Orders: Discharge Order (Routine); Ordered 08/02/19 Ordered By: Minal James/Other Patient Handouts: Kyphoplasty Dc Admission Data Admit Date/Time: 08/01/19 16:09 Attending Provider: Ed Mcgovern Admit Provider: Ed Mcgovern Primary Care Provider: Bernice Myers Other Providers: Minal Wall Other Interventions: Discharge Summary Assessment (RN) Last Done: 08/02/19 13:53
== END 2019-08-02 15:09 | disposition home or self-care (01) | DRG 478 ==
LOC: ASU 08:05 → 2E 16:09